=== PATIENT | female | born 1945 | race Hispanic/Latino ===

== ENCOUNTER → 2022-07-14 | Outpatient (CLI) | payer MEDICARE ==
[~2022-07-14] MED LIST: IOHEXOL 350 MG/ML 100ML INFUS..BTL IV ONE
== END | disposition home or self-care (01) ==
LOC: RAH 08:29
PROVIDERS: ATTEND Psychiatry & Neurology Neurology
DX: G44.059 Short lasting unilateral neuralgiform headache with conjunctival injection and tearing (SUNCT), not intractable (principal)
CPT/HCPCS: 70496; 70498; Q9967

== ENCOUNTER → 2023-03-15 | Outpatient (CLI) | payer OTHER | END | disposition home or self-care (01) | LOC: OIH 13:28 | PROVIDERS: ATTEND Family Medicine | DX: Z13.6 Encounter for screening for cardiovascular disorders (principal) | CPT/HCPCS: 75571 ==

== ENCOUNTER → 2023-07-21 | Outpatient (CLI) | payer OTHER ==
[2023-07-21 08:15] LABS: CREATININE 0.6 mg/dL (0.5-1.0)
== END | disposition home or self-care (01) ==
LOC: LAB 07:07
PROVIDERS: ATTEND Internal Medicine Gastroenterology
DX: R10.13 Epigastric pain (principal)
CPT/HCPCS: 36415; 82565; 84520

== ENCOUNTER → 2023-07-26 | Outpatient (CLI) | payer OTHER ==
[~2023-07-26] MED LIST changes: -IOHEXOL 350 MG/ML 100ML INFUS..BTL IV ONE; +IOHEXOL-350 75 ML VIAL IV ONE
== END | disposition home or self-care (01) ==
LOC: RAH 09:05
PROVIDERS: ATTEND Internal Medicine Gastroenterology
DX: K57.90 Diverticulosis of intestine, part unspecified, without perforation or abscess without bleeding (principal); R10.13 Epigastric pain; Z90.49 Acquired absence of other specified parts of digestive tract; N20.0 Calculus of kidney
CPT/HCPCS: 74178; Q9967

== ENCOUNTER 2023-11-30 09:00 | Inpatient (IN) | payer OTHER ==
[2023-11-29 11:45] LABS: BASOPHILS # (AUTO) 0.03 K/uL (0.00-0.20); BASOPHILS % (AUTO) 0.3 % (0.0-5.0); EOSINOPHILS # (AUTO) 0.15 K/uL (0.00-0.70); EOSINOPHILS % (AUTO) 1.6 % (0.0-8.0); HEMATOCRIT 40.8 % (36-48); IMMATURE GRANULOCYTE ABSOLUTE 0.03 K/uL (0-1); LYMPHOCYTES # (AUTO) 1.7 K/uL (1.0-4.8); LYMPHOCYTES % (AUTO) 18.5 % (21.0-51.0); MEAN CORPUSCULAR HEMOGLOBIN 32.4 pg (27.0-33.0); MEAN CORPUSCULAR HGB CONC 33.6 g/dL (32.0-36.0); MEAN CORPUSCULAR VOLUME 96.5 fL (79-99); MONOCYTES # (AUTO) 0.6 K/uL (0.1-1.0); MONOCYTES % (AUTO) 6.7 % (3.0-13.0); NEUTROPHILS # (AUTO) 6.8 K/uL (1.8-7.7); NEUTROPHILS % (AUTO) 72.6 % (40.0-77.0); PLATELET COUNT (AUTO) 238 K/uL (130-400); RED BLOOD CELL COUNT(AUTO) 4.23 MIL/uL (4.00-5.50); RED CELL DISTRIBUTION WIDTH 12.3 % (11.0-15.5); WHITE BLOOD COUNT (AUTO) 9.3 K/uL (4.8-10.8)
[2023-11-29 11:59] LABS: CREATININE 0.7 mg/dL (0.5-1.0); POTASSIUM 3.3 mmol/L (3.5-5.1)
[2023-11-29 12:25] LABS: INR 1.09 (0.85-1.15); PROTHROMBIN TIME 11.7 SEC (9.6-11.6)
[2023-11-29 13:31] VITALS: BP 151/55; PULSE 75; RESP 18; TEMP 97.8
[~2023-11-30] VITALS: Ht 154.9 cm; Wt 57.6 kg
[~2023-11-30 09:00] MED LIST changes: +CELE200 PO; -IOHEXOL-350 75 ML VIAL IV ONE; +OMEP40CA21 PO; +ROSU20TA98 PO
[2023-12-02] VITALS (23 sets, daily range): BP systolic 101–148; BP diastolic 28–72; PULSE 61–96; RESP 16–20; TEMP 97.7–98; O2SAT 99
[2023-12-02 08:12] LABS: CREATININE 0.6 mg/dL (0.5-1.0); POTASSIUM 3.2 mmol/L (3.5-5.1)
[2023-12-02] MEDS: LACTATED RINGERS 1000ML 1,000 ML IV ONE (08:14)
[2023-12-02] MEDS: metRONIDazole 500MG/100ML BAG 200 ML ONE (08:15)
[2023-12-02] MEDS: ceFAZolin SODIUM 2 GM VIAL ONE (08:15)
[2023-12-02] MEDS ORDERED: proPOFol 10 MG/ML 20ML VIAL IV ONE (10:00)
[2023-12-02] MEDS ORDERED: FENTanyl CITRate PF 50 MCG/1 ML 2ML VIAL ONE ×2 (10:00→12:07)
[2023-12-02] MEDS ORDERED: LIDOCAINE PF 100MG/5ML (2%) SYRINGE 5ML ONE (10:00)
[2023-12-02] MEDS ORDERED: MIDAZOLAM HCL 1 MG/ML 2ML VIAL ONE (10:00)
[2023-12-02] MEDS ORDERED: rocuRONium bROMide 10MG/1ML 5ML VL ONE ×2 (10:00→11:05)
[2023-12-02] MEDS: SCOPOLAMINE HYDROBROMIDE 1 EACH ADH..PATCH TD ONE (10:18)
[2023-12-02] MEDS ORDERED: BUPIvacaine/PF 0.25% 30ML VIAL IJ ONE (10:26)
[2023-12-02] MEDS: ceFAZolin SODIUM 2 GM VIAL IVPB ONE (11:00)
[2023-12-02] MEDS ORDERED: ePHEDrine SULFate 50 MG/ML AMPULE ONE (11:17)
[2023-12-02] MEDS ORDERED: NEOSTIGMINE METHYLSULFATE 1MG/ML IV ONE (12:30)
[2023-12-02] MEDS ORDERED: ondanSETRON 4MG INJ ONE (12:30)
[2023-12-02] MEDS ORDERED: GLYCOPYRROLATE 0.2 MG/ML 5 ML VIAL ONE (12:30)
[2023-12-02] MEDS ORDERED: ondanSETRON 4MG INJ IVP PRN (13:30)
[2023-12-02] MEDS ORDERED: HYDROcod/acetaMINOPHEN 7.5/325 MG 15 ML UDCUP PO PRN (13:30)
[2023-12-02] MEDS ORDERED: PROCHLORPERAZINE 10MG/2ML INJ IV PRN (13:30)
[2023-12-02] MEDS ORDERED: hydroMORPHone 0.5 MG SYG (0.5MG/0.5ML) IVP PRN (13:30)
[2023-12-02] MEDS: ondanSETRON 4MG INJ ONE (13:36)
[2023-12-02] MEDS: MEPERIDINE-PF 25 MG/ML SYG ONE (13:37)
[2023-12-02] MEDS: LACTATED RINGERS 1000ML 1,000 ML IV SCH (14:50)
[2023-12-02] MEDS: ENOXAPARIN SODIUM 30 MG/0.3 ML SQ SCH (14:57)
[2023-12-02] MEDS ORDERED: PoTASSium chloRIDE 20MEQ ER 20 MEQ ERTAB PO PRN (17:30)
[2023-12-02] MEDS: PoTASSium chloRIDE 20MEQ/100ML 100 ML IV PRN (18:13)
[2023-12-02] MEDS: FAMOTIDINE 20MG VIAL IV SCH (19:57)
[2023-12-02] MEDS: ketOROlac 15MG/ML VIAL (15MG/ML) IV PRN (19:58)
[2023-12-03] VITALS (8 sets, daily range): BP systolic 111–140; BP diastolic 34–65; PULSE 54–69; RESP 16–18; TEMP 97.8–98.4; O2SAT 97
[2023-12-03 10:16] LABS: HEMATOCRIT 33.5 % (36-48); MEAN CORPUSCULAR HEMOGLOBIN 32.8 pg (27.0-33.0); MEAN CORPUSCULAR HGB CONC 34.3 g/dL (32.0-36.0); MEAN CORPUSCULAR VOLUME 95.4 fL (79-99); PLATELET COUNT (AUTO) 203 K/uL (130-400); RED BLOOD CELL COUNT(AUTO) 3.51 MIL/uL (4.00-5.50); RED CELL DISTRIBUTION WIDTH 12.6 % (11.0-15.5); WHITE BLOOD COUNT (AUTO) 13.8 K/uL (4.8-10.8)
[2023-12-03 10:43] LABS: CREATININE 0.6 mg/dL (0.5-1.0); POTASSIUM 3.9 mmol/L (3.5-5.1); THYROID STIMULATING HORMONE 0.17 uIU/mL (0.36-3.74)
[2023-12-03 11:01] LABS: BAND NEUTROPHILS % (MANUAL) 3 % (0-2); LYMPHOCYTES % (MANUAL) 11 % (22-44); MAN.DIFF COMMENT-IMPRESSION MANUAL DIFFERENTIAL; MONOCYTES % (MANUAL) 8 % (2-9); PLATELET MORPHOLOGY COMMENT ADEQUATE; SEGMENTED NEUTROPHILS % 78 % (40-70); TOTAL CELLS COUNTED 100
[2023-12-04] VITALS (7 sets, daily range): BP systolic 116–132; BP diastolic 42–56; PULSE 67–83; RESP 17–18; TEMP 97.9–98.8; O2SAT 98
[2023-12-04 05:12] LABS: BASOPHILS # (AUTO) 0.03 K/uL (0.00-0.20); BASOPHILS % (AUTO) 0.4 % (0.0-5.0); EOSINOPHILS # (AUTO) 0.06 K/uL (0.00-0.70); EOSINOPHILS % (AUTO) 0.7 % (0.0-8.0); HEMATOCRIT 30.1 % (36-48); IMMATURE GRANULOCYTE ABSOLUTE 0.02 K/uL (0-1); LYMPHOCYTES % (AUTO) 12.9 % (21.0-51.0); MEAN CORPUSCULAR HEMOGLOBIN 32.1 pg (27.0-33.0); MEAN CORPUSCULAR HGB CONC 33.6 g/dL (32.0-36.0); MEAN CORPUSCULAR VOLUME 95.6 fL (79-99); MONOCYTES # (AUTO) 0.7 K/uL (0.1-1.0); MONOCYTES % (AUTO) 8.5 % (3.0-13.0); NEUTROPHILS # (AUTO) 6.2 K/uL (1.8-7.7); NEUTROPHILS % (AUTO) 77.3 % (40.0-77.0); PLATELET COUNT (AUTO) 175 K/uL (130-400); RED BLOOD CELL COUNT(AUTO) 3.15 MIL/uL (4.00-5.50)
[2023-12-04 05:45] LABS: CREATININE 0.5 mg/dL (0.5-1.0); POTASSIUM 3.2 mmol/L (3.5-5.1)
[2023-12-04] MEDS: PoTASSium chl 10% ELIXIR 20MEQ 20 MEQ/15 ML UDCUP PO PRN (09:32)
== END 2023-12-04 14:15 | disposition home or self-care (01) | DRG 328 ==
LOC: DAHIP 12-02 07:22 → 4AH 12-02 14:12
PROVIDERS: ADMIT Surgery; ATTEND Surgery
PROC: 8E0W4CZ Robotic Assisted Procedure of Trunk Region, Percutaneous Endoscopic Approach (ICD-10-PCS; 2023-12-02)
PROC: 0DJ08ZZ Inspection of Upper Intestinal Tract, Via Natural or Artificial Opening Endoscopic (ICD-10-PCS; 2023-12-02)
PROC: 0BUT4JZ Supplement Diaphragm with Synthetic Substitute, Percutaneous Endoscopic Approach (ICD-10-PCS; principal; 2023-12-02 10:20)
PROC: 0DB64ZZ Excision of Stomach, Percutaneous Endoscopic Approach (ICD-10-PCS; 2023-12-02 10:20)
PROC: 0D164ZA Bypass Stomach to Jejunum, Percutaneous Endoscopic Approach (ICD-10-PCS; 2023-12-02 10:20)
DX: K44.9 Diaphragmatic hernia without obstruction or gangrene (principal); K31.84 Gastroparesis; E78.5 Hyperlipidemia, unspecified; K21.9 Gastro-esophageal reflux disease without esophagitis; I95.9 Hypotension, unspecified; R33.9 Retention of urine, unspecified; Z90.49 Acquired absence of other specified parts of digestive tract; Z88.5 Allergy status to narcotic agent
CPT/HCPCS: 36415; 43235; 80048; 83605; 84439; 84443; 84481; 85025; 85610; 85730; 86850; 86900; 86901; 92610; 93971; G0378; J1650; J1885; J2003; J2175; J2250; J2405; J2704; J2710; J3010; J3480; J3490; J7030; J7120; A4215; A4221; A4222; A4223; A4600; A4663; A4930; A6260; C1781; G8980-CI; G8983-CI; J0665; J0690

== ENCOUNTER → 2024-02-14 | Outpatient (CLI) | payer OTHER ==
[~2024-02-14] MED LIST changes: -CELE200 PO; +DIATR MEGLU/DIATRIZOATE SODIUM 30 ML BOTTLE ONE; -OMEP40CA21 PO
--- NOTE | 2024-02-14 13:29 | HMCIMG ---
UPPER GI TRACT, WO KUB REASON: EPIGASTRIC PAIN, DIAPHRAGMATIC HERNIA W/O OBSTRUCTION OR GANGRENE. COMPARISON: None TECHNIQUE: Gastrografin upper chest series was performed. FINDINGS: There is no obstruction to the antegrade passage of contrast from mild through jejunum. Postop changes are seen of the stomach. Normal esophageal stripping wave is seen. There is spontaneous gastroesophageal reflux into the level of the mid thoracic esophagus. Stomach is moderately distended without wall thickening or mass lesion. Duodenal bulb and duodenal sweep are unremarkable. IMPRESSION: No obstruction is seen. Spontaneous gastroesophageal reflux to the level of mid thoracic esophagus. Postop changes at the gastroesophageal junction .
== END | disposition home or self-care (01) ==
LOC: RAH 02-07 08:21
PROVIDERS: ATTEND Surgery
DX: K21.9 Gastro-esophageal reflux disease without esophagitis (principal); K44.9 Diaphragmatic hernia without obstruction or gangrene; R10.13 Epigastric pain; Z98.890 Other specified postprocedural states
CPT/HCPCS: 74240; Q9963